=== PATIENT | female | born 1985 | race Caucasian/White ===

== ENCOUNTER 2020-07-01 16:40 | Emergency (ER) | payer OTHER ==
[2020-07-01] MEDS ORDERED: IBUPROFEN600 MG PO (18:28)
[2020-07-01] MEDS ORDERED: DOXYCYCLINE HY100 M2 PO (18:28)
[2020-07-01] MEDS ORDERED: BACTROBAN OINT22 GM EXT (18:28)
== END 2020-07-01 18:50 | disposition home or self-care (01) ==
LOC: ER1 16:40
DX: S60.311A Abrasion of right thumb, initial encounter (principal); F17.290 Nicotine dependence, other tobacco product, uncomplicated; X58.XXXA Exposure to other specified factors, initial encounter; Z20.2 Contact with and (suspected) exposure to infections with a predominantly sexual mode of transmission
CPT/HCPCS: 10160; 87070; 87077; 87186; 87205; 96372; 99283; J0696